=== PATIENT | male | born 1935 | race Caucasian/White ===

== ENCOUNTER → 2016-06-25 | Outpatient (CLI) | payer BC ==
[~2016-06-25] MED LIST: ACET-1256 PO; ALBINS NEB; ALBU0.08 INH; ATOR-26 PO; ATOR80TA PO; CALC-521 PO; CALCTAB13 PO; CARB25TA12 PO; CHOL100010 PO; CLON0.5T3 PO; CLOP1TAB5 PO; CLR10 PO; DENOINJ IM; DPRSO45 TOP; FLUO0.01 TOP; HYT1 PO; KETO2CRE14 TOP; LORA-741 PO; LORA10TA5 PO; MENTOIN TOP; MESA1TAB4 PO; MRLP17 PO; MRLP17X PO; MULT-506 PO; NZRCR TOP; OPTIRAY 320 IV PRN; OXGN; PIMA17TA PO; POLY335040 PO; PRS5 PO; RBTUDL5 PO; SIME80CH PO; SNM/25100 PO; TIMO1SOL6 OPR; TRAV0.00 OPR
--- NOTE | 2016-06-25 11:39 | DIAGNOSTIC IMAGING REPORT ---
CHEST CT WITH CONTRAST CT DOSE: HISTORY: Neoplasm ELBERT CELL CARCINOMA TECHNIQUE: Multiaxial CT images of the chest were performed following the intravenous administration of contrast. COMPARISON: 10/23/2015 FINDINGS: Stable aneurysmal distention a sending aorta. Current maximum dimension is 4.6-4.7 cm. Mild stable cardiomegaly No evidence for dissection. No significant hilar or mediastinal adenopathy. Slight interstitial change at both lung bases. No significant pulmonary nodularity or infiltrative process. IMPRESSION: Stable distention of the a sending thoracic aorta. CT of the chest is otherwise negative. No change from the prior exam. Electronically signed by: Bandar Cobb M.D. 06/25/2016 11:36 AM Dictated Date/Time: 06/25/2016 11:30 AM
--- NOTE | 2016-06-25 11:43 | DIAGNOSTIC IMAGING REPORT ---
CT SCAN OF THE ABDOMEN AND PELVIS WITH IV CONTRAST CLINICAL HISTORY: Carie cell carcinoma. History of melanoma. COMPARISON STUDY: Abdominal CT dated 10/23/2015 and 09/17/2011. PET/CT dated 06/25/2015. TECHNIQUE: Following the IV administration of 115 cc of Optiray 320, CT scan of the abdomen and pelvis is performed from the lung bases to the proximal femora. Images are reviewed in the axial, sagittal, and coronal planes. IV contrast was administered without complication. Automated dose control exposure was utilized. The examination is a greater by streak artifact from the patient's arms which could not be elevated above the abdomen. CT DOSE: 746.89 mGy.cm FINDINGS: Lung bases: The heart is enlarged and there is trace pericardial effusion. Linear atelectasis versus scarring is seen at the left lung base. No airspace consolidation or pleural effusion is identified. There is a small hiatal hernia. Mild aneurysmal dilatation of the ascending thoracic aorta is similar to previous and measures up to 4.9 cm. Liver: Evaluation of the liver is significantly degraded by streak artifact. The contrast-enhanced liver is normal in size, contour, and attenuation. There is no intrahepatic biliary ductal dilatation. The hepatic veins and portal veins are patent. Gallbladder: Unremarkable. Spleen: Normal in size and attenuation. 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 Pancreas: There is moderate glandular atrophy of the pancreas. The pancreas is otherwise normal as imaged. Adrenal glands: Unremarkable. Kidneys: Numerous nonobstructing left renal calculi are again seen measuring up to 12 mm. A single nonobstructing right renal calculus is identified. The contrast enhanced kidneys demonstrate mild cortical atrophy and are without hydronephrosis. An extrarenal pelvis is noted on the left. The kidneys enhance symmetrically. Abdominal vasculature: There is advanced atherosclerotic calcification as well as ectasia of the abdominal aorta. No aneurysm is seen. Bowel: The small bowel and colon are normal in course and caliber. There is moderate to advanced sigmoid diverticulosis without CT evidence of acute diverticulitis. There is moderate colonic fecal retention. The appendix is not clearly visualized. Peritoneum: There is no intraperitoneal free air or abdominal ascites. Lymphadenopathy: None. Pelvic viscera: The prostate gland is mildly enlarged and heterogeneous. There is median lobe hypertrophy. The bladder is normal as visualized. Surgical clips are noted along the spermatic cord. Skeletal structures: The skeletal structures are osteopenic. No lytic or blastic lesions are seen. Trabecular thickening and mild sclerosis is identified within the right iliac wing. The appearance suggests Paget's disease of bone. IMPRESSION: 1. There is no evidence of metastatic disease in the abdomen or pelvis, and there has been no significant change from 10/23/2015. 2. Moderate to advanced sigmoid diverticulosis without CT evidence of acute diverticulitis. 3. Moderate constipation. 4. 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 5. Bilateral nonobstructing renal calculi, left greater than right. 6. Mild cardiomegaly with aneurysmal dilatation of the ascending thoracic aorta. 7. 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 8. Additional findings as above. Electronically signed by: Marlo Morgan M.D. 06/25/2016 11:41 AM Dictated Date/Time: 06/25/2016 11:33 AM
== END | disposition home or self-care (01) ==
LOC: C.CTS 10:35
PROVIDERS: ATTEND Nurse Practitioner
DX: C4A.4 Merkel cell carcinoma of scalp and neck (principal); K57.30 Diverticulosis of large intestine without perforation or abscess without bleeding; K59.00 Constipation, unspecified; N20.0 Calculus of kidney; I72.8 Aneurysm of other specified arteries

== ENCOUNTER → 2016-12-22 | Outpatient (CLI) | payer BC ==
[~2016-12-22] MED LIST changes: -ACET-1256 PO; -ALBINS NEB; -ATOR-26 PO; -CALC-521 PO; -CARB25TA12 PO; -CHOL100010 PO; -CLR10 PO; -DPRSO45 TOP; -MENTOIN TOP; -MESA1TAB4 PO; +MESA800T6 PO; -MRLP17 PO; -MRLP17X PO; -NZRCR TOP; -PIMA17TA PO; -RBTUDL5 PO; -SIME80CH PO
--- NOTE | 2016-12-22 14:58 | DIAGNOSTIC IMAGING REPORT ---
(CHEST) THORAX WITH CLINICAL HISTORY: 81 years-old Male presenting with ELBERT CELL CA. TECHNIQUE: Multidetector CT imaging of the chest was performed after the administration of intravenous contrast. IV contrast: Optiray 320. A dose lowering technique was used consistent with the principles of ALARA (as low as reasonably achievable). COMPARISON: 06/25/2016. CT DOSE (mGy.cm): The estimated cumulative dose is 1030.57 mGycm. FINDINGS: Vp Strategy topogram: Unremarkable. On soft tissue windows, normal thyroid and thoracic inlet. No axillary, supraclavicular, hilar, or mediastinal lymphadenopathy. Atherosclerosis of the aorta. Aneurysmal dilatation of the ascending aorta, which measures 5.1 cm in maximal transverse dimension, previously 5.2 cm when remeasured at a comparable level. This extends to the proximal aortic arch. Mild coronary artery and aortic valve calcification. Normal heart size. Small pericardial effusion, new from prior. No pleural effusion. Intraesophageal reflux of contrast. Nonobstructing 4 mm right renal calculus. On lung windows, interval development of groundglass and reticular opacity dependently in the right middle lobe. Minimal dependent changes at the lung bases likely atelectasis. Apical scarring noted bilaterally. Mild prominence of the trachea. Airways patent. On bone windows, slightly exaggerated thoracic kyphosis. Mild degenerative changes of the spine. Significant osteopenia. IMPRESSION: 1. No convincing evidence of intrathoracic metastatic disease. No lymphadenopathy. 2. Interval development of groundglass and reticular opacity dependently in the right middle lobe. This raises concern for an infectious etiology or aspiration, although this may represent atypical atelectasis. 3. Small pericardial effusion, new from prior. 4. Stable appearance of the ascending aortic aneurysm. 5. 4 mm nonobstructing right renal calculus. 6. Osteopenia. Electronically signed by: Lokesh Rose M.D. 12/22/2016 2:56 PM Dictated Date/Time: 12/22/2016 2:49 PM
--- NOTE | 2016-12-22 15:19 | DIAGNOSTIC IMAGING REPORT ---
CT OF THE ABDOMEN AND PELVIS WITH CONTRAST CLINICAL HISTORY: Tenafly cell carcinoma. COMPARISON STUDY: CT of the abdomen and pelvis June 25, 2016 and PET/CT June 25, 2015. TECHNIQUE: Following IV administration of 94 mL of Optiray-320, axial images of the abdomen and pelvis were obtained from the lung bases to the proximal femurs. Images were reviewed in the axial, sagittal, and coronal planes. IV contrast was administered without complication. A dose lowering technique was utilized adhering to the principles of ALARA. Oral contrast was administered. FINDINGS: The chest will be reported separately. Mild right middle lobe opacity is new since exam of June 25, 2016 and suggests a mild infectious process. The liver, spleen, adrenal glands, kidneys and pancreas are unremarkable with the exception of numerous bilateral renal calculi. No ureteral calculi are present. There is no hydronephrosis or hydroureter. A 1.3 cm peripherally calcified splenic artery aneurysm is unchanged. There is no evidence for rupture. There is no evidence for a bowel obstruction. No abdominal or pelvic lymphadenopathy is present. Moderate amount of stool is noted within the colon. There is no evidence for a bowel obstruction. There is no ascites. Trabecular coarsening within the right iliac bone is unchanged. This may reflect Paget's these. No new osseous lesions are identified on this exam. IMPRESSION: 1. No evidence of metastatic disease within the abdomen or pelvis. 2. Bilateral nephrolithiasis. 3. Mild right middle lobe opacity which suggests a mild infectious process. 4. Moderate amount of stool within the colon. No bowel obstruction. Electronically signed by: Imtiaz Monsivais M.D. 12/22/2016 3:18 PM Dictated Date/Time: 12/22/2016 2:53 PM
== END | disposition home or self-care (01) ==
LOC: C.CTS 14:18
PROVIDERS: ATTEND Nurse Practitioner Family
DX: C4A.4 Merkel cell carcinoma of scalp and neck (principal)

== ENCOUNTER 2017-02-13 10:18 | Emergency (ER) | payer BC ==
[~2017-02-13] VITALS: Ht 177.8 cm; Wt 69.3 kg
[~2017-02-13 10:18] MED LIST changes: +MESA1TAB4 PO; -MESA800T6 PO; -OPTIRAY 320 IV PRN; -SNM/25100 PO
[2017-02-13 10:23] VITALS: TEMP 37.1; Ht 177.8 cm; Wt 69.3 kg
--- NOTE | 2017-02-13 10:57 | EMERGENCY ROOM VISIT NOTE ---
History Report prepared by Brad: Abhi Bustamante Under the Supervision of: Dr. Lonnie Blackman M.D. First contact with patient: 10:29 Chief Complaint: SYNCOPE Stated Complaint: SYNCOPE Nursing Triage Summary: Pt. is from [facility], staff report a 12 second episode of syncope as they were helping him from his wheelchair to the BR. No falls or injury. Pt. has parkinson's. Hx. of TIA's. History of Present Illness The patient is an 81 year old male with a history of Parkinson's and TIA's who presents to the Emergency Room from [facility] via EMS with a syncopal episode that occurred prior to arrival this morning. Per the patient's , the patient was being carried from the bathroom to his wheelchair, when the person carrying the patient was noted to be not acting right, and the patient proceeded to have a 12-second syncopal episode, but was caught by the caregiver. Any falls, seizure-like activity, or injuries during the episode were denied. The patient did not lose bladder or bowel control. The patient says that he does not remember anything about the episode, and is only currently oriented to person and place. He states that he is currently feeling very weak. He notes that he has been fighting a cold for the past 3 weeks with minor congestion and a cough. The patient's adds that she noticed that the patient had skipped beats when she took his pulse after the episode. The patient has no history of diagnosed arrhythmia. He denies any fevers, shortness of breath, nausea, vomiting, constipation, diarrhea, or urinary symptoms. He has had 2 TIA's in the past year, but the sensation today is different than when he had the TIA's. Per the patient's , the patient frequently aspirates saliva. The patient denies any pain. Source of History: patient, spouse/significant other, nursing staff Onset: Prior to arrival this morning Position: other (global - syncope) Symptom Intensity: 12 second episode Timing: other (episode) Associated Symptoms: + weakness, No fevers, No SOB, No nausea, No vomiting, No diarrhea, No urinary symptoms Note: Associated symptoms: Cold symptoms past 3 weeks. Skipped beats noted by . Denies falls, seizure-like activity, constipation, loss of bladder or bowel control. Denies pain. Review of Systems All systems have been listed, reviewed, and are negative other than those previously mentioned. Please see Additional Medical History Sheet. 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 Social History Smoking Status: Never Smoker Alcohol Use: none Marital Status: Housing Status: lives with family Occupation Status: retired Current/Historical Medications Scheduled Albuterol Sulf (Albuterol Sulfate), 3 ML NEB EVERY AFTERNOON Atorvastatin (Lipitor), 80 MG PO QPM Betamethasone Dip (Betamethasone Dipropionat), 1 APPLN TOP BID Calcium Carbonate-Vitamin D (Pa Oyster Shell Calcium 500-200 mg-Unit), 1 TAB PO BID Carbidopa/Levodopa (Sinemet 25MG/100MG), 2 TAB PO QAM Cholecalciferol (Vitamin D), 1,000 UNIT PO QAM Clopidogrel Bisulfate (Plavix), 1 TAB PO DAILY Finasteride (Finasteride), 5 MG PO HS Home O2 Therapy (Oxygen), 2 LITERS NA HS Ketoconazole (Ketoconazole), 1 APPLN TOP BID Levodopa/Carbidopa (Sinemet 25MG/100MG), 1.5 TAB PO QID Loratadine (Claritin), 10 MG PO HS Lorazepam (Ativan), 0.5 MG PO DAILY Menthol-Zinc Oxide (Calmoseptine), 1 APPLN TOP EVERY SHIFT Mesalamine (Asacol Hd), 800 MG PO BID Multivitamin (Multivitamin), 1 TAB PO DAILY Pimavanserin Tartrate (Nuplazid), 34 MG PO QAM Polyethylene (Miralax), 17 GM PO QAM Terazosin HCl (Terazosin HCl), 1 MG PO HS Timolol Hemihydrate 0.25% Oph (Betimol 0.25% Oph), 1 DROP OPR QAM Travoprost (Travatan Z), 1 DROP OPR DAILY Scheduled PRN Acetaminophen (Tylenol), 500 MG PO Q4 PRN for Pain Clonazepam (Klonopin), 0.25 MG PO Q4 PRN for Anxiety/Agitation Fluocinolone Acetonide (Fluocinolone Acetonide), 1 APPLN TOP DAILY PRN for ITCHING Guaifenesin (Robitussin), 10 ML PO Q6 PRN for Cough Polyethylene (Miralax), 17 GM PO DAILY PRN for Constipation Simethicone (Gas-X), 80 MG PO Q6 PRN for Gas or Constipation Allergies Coded Allergies: Molds and Smuts (Verified Allergy, Mild, Nasal discharge, 09/11/14) Physical Exam Vital Signs Date Time Temp Pulse Resp B/P (MAP) Pulse Ox O2 Delivery O2 Flow Rate FiO2 02/13/17 14:46 59 20 155/53 95 Room Air 02/13/17 13:45 98/57 02/13/17 13:45 59 20 116/59 65 90/45 86 02/13/17 13:30 62 22 96 Room Air 02/13/17 13:12 64 02/13/17 13:00 65 17 137/64 97 Room Air 02/13/17 12:30 61 13 96 Room Air 02/13/17 12:02 68 23 131/60 96 Room Air 02/13/17 11:18 65 13 125/55 95 Room Air 02/13/17 11:18 95 Room Air 02/13/17 10:56 68 02/13/17 10:23 37.1 69 16 112/57 98 Room Air Physical Exam GENERAL: Patient awake, alert, oriented x 2. Patient appears weak. Patient follows commands. Patient is adequately hydrated and well-nourished. SKIN: No erythema, pallor, cyanosis or rash HEENT: Normal head, pupils equal, reactive to light and accommodation. LUNGS: Wheezes most prominent on the right anterior chest. HEART: No murmurs. No gallops. No rubs ABDOMEN: Soft and nontender. No masses, no rebound, no hepatomegaly or splenomegaly. EXTREMITIES: No signs of trauma or infection. No pedal or pretibial edema. No calf or thigh tenderness. NEUROLOGIC: Cranial nerves II-XII within normal limits. No gross motor sensory function deficits. Medical Decision & Procedures ER Provider Diagnostic Interpretation: Radiology results as stated below per my review and radiologist interpretation: HEAD WITHOUT CONTRAST (CT) CLINICAL HISTORY: 81 years-old Male with syncope. Acute syncopal event. TECHNIQUE: Multiple axial CT images of the head were obtained without contrast. A dose lowering technique was utilized adhering to the principles of ALARA. CT DOSE: 614.27 mGy.cm COMPARISON: CT 02/05/2015. FINDINGS: No acute intracranial hemorrhage, midline shift, intracranial mass, hydrocephalus, territorial ischemia or abnormal extra-axial collection. Moderate atrophy with ex vacuo ventriculomegaly. Chronic microvascular ischemic changes. The calvarium is intact. The mastoid air cells, and middle ear cavities are clear. Moderate mucosal thickening of the ethmoid air cells with mild sphenoid, frontal and maxillary sinus disease. Soft tissues are unremarkable. Prosthetic right globe again seen. IMPRESSION: No acute intracranial abnormality. The above report was generated using voice recognition software. It may contain grammatical, syntax or spelling errors. Electronically signed by: Presley Núñez M.D. 02/13/2017 11:50 AM Dictated Date/Time: 02/13/2017 11:47 AM CHEST 2 VIEWS ROUTINE HISTORY: 81 years-old Male syncope COMPARISON: Chest CT 12/22/2016, chest radiograph 09/19/2015 TECHNIQUE: Portable AP view of the chest FINDINGS: Cardiac silhouette is again mildly enlarged. There is atherosclerosis of the aorta. Right lung apex is partially obscured by positioning of the patient's chin. There is no pneumothorax, pleural effusion, focal airspace consolidation or overt pulmonary edema. Lungs are mildly hyperinflated. The bones appear osteopenic. Degenerative changes are seen within the spine and shoulders. IMPRESSION: No acute cardiopulmonary process. The above report was generated using voice recognition software. It may contain grammatical, syntax or spelling errors. Electronically signed by: Presley Núñez M.D. 02/13/2017 11:52 AM Dictated Date/Time: 02/13/2017 11:51 AM Laboratory Results 02/13/17 11:05 Red Blood Count 4.05, Mean Corpuscular Volume 98.3, Mean Corpuscular Hemoglobin 32.1, Mean Corpuscular Hemoglobin Concent 32.7, Mean Platelet Volume 10.4, Neutrophils (%) (Auto) 82.3, Lymphocytes (%) (Auto) 8.3, Monocytes (%) (Auto) 6.3, Eosinophils (%) (Auto) 2.6, Basophils (%) (Auto) 0.2, Neutrophils # (Auto) 10.65, Lymphocytes # (Auto) 1.08, Monocytes # (Auto) 0.81, Eosinophils # (Auto) 0.34, Basophils # (Auto) 0.02 02/13/17 11:05 Test 02/13/17 11:05 White Blood Count 12.94 K/uL (4.8-10.8) Red Blood Count 4.05 M/uL (4.7-6.1) Hemoglobin 13.0 g/dL (14.0-18.0) Hematocrit 39.8 % (42-52) Mean Corpuscular Volume 98.3 fL (80-100) Mean Corpuscular Hemoglobin 32.1 pg (25-34) Mean Corpuscular Hemoglobin Concent 32.7 g/dl (32-36) Platelet Count 242 K/uL (130-400) Mean Platelet Volume 10.4 fL (7.4-10.4) Neutrophils (%) (Auto) 82.3 % Lymphocytes (%) (Auto) 8.3 % Monocytes (%) (Auto) 6.3 % Eosinophils (%) (Auto) 2.6 % Basophils (%) (Auto) 0.2 % Neutrophils # (Auto) 10.65 K/uL (1.4-6.5) Lymphocytes # (Auto) 1.08 K/uL (1.2-3.4) Monocytes # (Auto) 0.81 K/uL (0.11-0.59) Eosinophils # (Auto) 0.34 K/uL (0-0.5) Basophils # (Auto) 0.02 K/uL (0-0.2) RDW Standard Deviation 49.3 fL (36.4-46.3) RDW Coefficient of Variation 13.7 % (11.5-14.5) Immature Granulocyte % (Auto) 0.3 % Immature Granulocyte # (Auto) 0.04 K/uL (0.00-0.02) Anion Gap 3.0 mmol/L (3-11) Est Creatinine Clear Calc Drug Dose 73.1 ml/min Estimated GFR () 98.3 Estimated GFR (Non- 84.8 BUN/Creatinine Ratio 17.4 (10-20) Calcium Level 8.6 mg/dl (8.5-10.1) Total Bilirubin 0.4 mg/dl (0.2-1) Aspartate Amino Transf (AST/SGOT) 13 U/L (15-37) Alanine Aminotransferase (ALT/SGPT) 11 U/L (12-78) Alkaline Phosphatase 119 U/L (45-117) Troponin I < 0.015 ng/ml (0-0.045) Total Protein 7.4 gm/dl (6.4-8.2) Albumin 3.2 gm/dl (3.4-5.0) Globulin 4.2 gm/dl (2.5-4.0) Albumin/Globulin Ratio 0.8 (0.9-2) Laboratory results as stated above per my review. ECG Indication: syncope Rate (beats per minute): 65 Rhythm: normal sinus Findings: no acute ischemic change, left axis deviation, no ectopy ED Course 1052: Past medical records reviewed. The patient was evaluated in room B3B. A complete history and physical examination was performed. 1319: I reevaluated the patient, and talked to him about the different causes of syncope. We will do orthostatics on him. 1415: Upon reevaluation, the patient appeared to have improvement of his symptoms. I discussed today's findings with him and his . They verbalized agreement of the treatment plan. The patient was discharged home. Medical Decision Nurses notes reviewed. Medical history sheet reviewed. Differential diagnosis includes but is not limited to: CVA, TIA, vasovagal syncope, neurogenic syncope , PE. The patient is here with syncope. Apparently he was lifted out of his bed rather suddenly compared to his usual and stood up. Patient had a short syncopal episode. He had no seizure activity. No incontinence. He had no history or palpitations. Multiple labs, EKG and imaging were obtained. Please see above. White count is minimally elevated but he has been in that neighborhood in the past. The patient has no evidence of a CVA or bleed. EKG is unremarkable. Orthostatics were repeated and his blood pressure did fall as his pulse marce. The patient remained stable while here in the ED. I believe the patient can safely return home. I discussed care with the patient and his . The patient was instructed to increase fluid intake and slowly move from supine to standing position. Medication Reconcilliation Current Medication List: was personally reviewed by me Blood Pressure Screening Patient's blood pressure: Normal blood pressure Impression Primary Impression: Syncope due to orthostatic hypotension Scribe Attestation The scribe's documentation has been prepared under my direction and personally reviewed by me in its entirety. I confirm that the note above accurately reflects all work, treatment, procedures, and medical decision making performed by me. Departure Information Dispostion Home / Self-Care Referrals Elis Morrison D.O. (PCP) Patient Instructions My [facility] Additional Instructions Increase fluid intake. Slowly move from supine to standing position. Take all of your current medications as prescribed. Follow-up with Dr. Morrison within the next 7 days.
[2017-02-13] MEDS ORDERED: CARB25TA12 PO (11:09)
[2017-02-13] MEDS ORDERED: NZRCR TOP (11:09)
[2017-02-13] MEDS ORDERED: CALC-521 PO (11:09)
[2017-02-13] MEDS ORDERED: RBTUDL5 PO (11:09)
[2017-02-13] MEDS ORDERED: HYT1 PO (11:09)
[2017-02-13] MEDS ORDERED: MRLP17X PO (11:09)
[2017-02-13] MEDS ORDERED: PIMA17TA PO (11:09)
[2017-02-13] MEDS ORDERED: PRS5 PO (11:09)
[2017-02-13] MEDS ORDERED: SIME80CH PO (11:09)
[2017-02-13] MEDS ORDERED: ACET-1256 PO (11:09)
[2017-02-13] MEDS ORDERED: MENTOIN TOP (11:09)
[2017-02-13] MEDS ORDERED: DPRSO45 TOP (11:09)
[2017-02-13] MEDS ORDERED: ATOR-26 PO (11:09)
[2017-02-13] MEDS ORDERED: MRLP17 PO (11:09)
[2017-02-13] MEDS ORDERED: CLR10 PO (11:09)
[2017-02-13] MEDS ORDERED: ALBINS NEB (11:09)
[2017-02-13] MEDS ORDERED: CHOL100010 PO (11:09)
[2017-02-13 11:18] VITALS: O2SAT 95
[2017-02-13 11:20] LABS: BASO % 0.2 %; BASO ABS # 0.02 K/uL (0-0.2); COMPLETE YES; EOS % 2.6 %; HEMATOCRIT 39.8 % (42-52); IG% 0.3 %; LYMPH % 8.3 %; LYMPH ABS # 1.08 K/uL (1.2-3.4); MEAN CELL VOLUME 98.3 fL (80-100); MEAN CORPUSCULAR HEMOGLOBIN 32.1 pg (25-34); MEAN CORPUSCULAR HGB CONC 32.7 g/dl (32-36); MEAN PLATELET VOLUME 10.4 fL (7.4-10.4); MONO % 6.3 %; NEUT % 82.3 %; PLATELET COUNT 242 K/uL (130-400); RED BLOOD COUNT 4.05 M/uL (4.7-6.1); WHITE BLOOD COUNT 12.94 K/uL (4.8-10.8)
[2017-02-13 11:40] LABS: ALT/SGPT 11 U/L (12-78); AST/SGOT 13 U/L (15-37); BLOOD UREA NITROGEN 14 mg/dl (7-18); BUN/CREATININE RATIO 17.4 (10-20); CALCIUM 8.6 mg/dl (8.5-10.1); CARBON DIOXIDE 35 mmol/L (21-32); CHLORIDE 101 mmol/L (98-107); CREATININE 0.79 mg/dl (0.60-1.40); GLUCOSE 175 mg/dl (70-99); POTASSIUM 3.9 mmol/L (3.5-5.1); SODIUM 139 mmol/L (136-145)
[2017-02-13] MEDS ORDERED: SNM/25100 PO (11:43)
[2017-02-13 11:44] LABS: ALB/GLOB RATIO 0.8 (0.9-2); ALKALINE PHOSPHATASE 119 U/L (45-117)
--- NOTE | 2017-02-13 11:52 | DIAGNOSTIC IMAGING REPORT ---
HEAD WITHOUT CONTRAST (CT) CLINICAL HISTORY: 81 years-old Male with syncope. Acute syncopal event. TECHNIQUE: Multiple axial CT images of the head were obtained without contrast. A dose lowering technique was utilized adhering to the principles of ALARA. CT DOSE: 614.27 mGy.cm COMPARISON: CT 02/05/2015. FINDINGS: No acute intracranial hemorrhage, midline shift, intracranial mass, hydrocephalus, territorial ischemia or abnormal extra-axial collection. Moderate atrophy with ex vacuo ventriculomegaly. Chronic microvascular ischemic changes. The calvarium is intact. The mastoid air cells, and middle ear cavities are clear. Moderate mucosal thickening of the ethmoid air cells with mild sphenoid, frontal and maxillary sinus disease. Soft tissues are unremarkable. Prosthetic right globe again seen. IMPRESSION: No acute intracranial abnormality. The above report was generated using voice recognition software. It may contain grammatical, syntax or spelling errors. Electronically signed by: Presley Núñez M.D. 02/13/2017 11:50 AM Dictated Date/Time: 02/13/2017 11:47 AM
--- NOTE | 2017-02-13 11:54 | DIAGNOSTIC IMAGING REPORT ---
CHEST 2 VIEWS ROUTINE HISTORY: 81 years-old Male syncope COMPARISON: Chest CT 12/22/2016, chest radiograph 09/19/2015 TECHNIQUE: Portable AP view of the chest FINDINGS: Cardiac silhouette is again mildly enlarged. There is atherosclerosis of the aorta. Right lung apex is partially obscured by positioning of the patient's chin. There is no pneumothorax, pleural effusion, focal airspace consolidation or overt pulmonary edema. Lungs are mildly hyperinflated. The bones appear osteopenic. Degenerative changes are seen within the spine and shoulders. IMPRESSION: No acute cardiopulmonary process. The above report was generated using voice recognition software. It may contain grammatical, syntax or spelling errors. Electronically signed by: Presley Núñez M.D. 02/13/2017 11:52 AM Dictated Date/Time: 02/13/2017 11:51 AM
[2017-02-13 16:15] VITALS: BP 108/56; PULSE 70; O2SAT 95
== END 2017-02-13 16:17 | disposition home or self-care (01) ==
LOC: EDBD 10:18 → C.EDB 10:20
DX: R55 Syncope and collapse (principal); I95.1 Orthostatic hypotension; G20 Parkinson's disease; J45.909 Unspecified asthma, uncomplicated; Z87.19 Personal history of other diseases of the digestive system; Z85.9 Personal history of malignant neoplasm, unspecified; Z79.899 Other long term (current) drug therapy; Z91.09 Other allergy status, other than to drugs and biological substances